=== PATIENT | male | born 1950 | race Caucasian/White ===

== ENCOUNTER 2018-06-07 15:07 | Outpatient (CLI) | payer OTHER ==
--- NOTE | 2018-06-07 15:59 | CT ---
EXAM: CT of the head without contrast History: Head trauma. Comparison: Head CT 10/05/2009 Technique: Multiplanar CT images through the head were obtained without the administration of IV con trast. Findings: The visualized paranasal sinuses and mastoid air cells are clear in general. No acute teresa varial abnormalities. Intracranially the ventricular and cisternal spaces are normal in size, shape and configuration for a patient of this age. No dominant mass or midline shift. No hydrocephalous. No acute intracranial hemorrhage or abnormal extraaxial fluid collections. Scattered periventricular and subcortical white matter hypodensities. Impression: 1. No acute intracranial process. 2. Chronic small vessel ischemic disease
--- NOTE | 2018-06-07 16:05 | CT ---
EXAM: CT of the cervical spine without contrast History: Neck pain and trauma. Technique: Multiplanar CT images through the cervical spine were obtained without the administration of IV contrast Findings: The visualized upper lungs are free of consolidation. The visualized airway remains patent . No acute fracture or subluxation of the cervical spine. No prevertebral soft tissue swelling. Gross ly intact anterior cervical fusion hardware from C3-C6. Predental space is not widened. Long bilate ral styloid processes. Bony spinal canal is not significantly compromised. Moderate multilevel bila teral bony neural foraminal narrowing secondary to uncovertebral and facet hypertrophy. Impression: No acute osseous abnormality of the cervical spine
--- NOTE | 2018-06-07 16:08 | CT ---
EXAM: CT of the maxillofacial region without contrast History: Right-sided facial trauma. Technique: Multiplanar CT images through the maxillofacial region were obtained without the administ ration of IV contrast. Findings: Orbits are intact. Visualized intracranial contents demonstrate no acute findings. There is mild subcutaneous edema of the right cheek. No acute fracture or dislocation. Nasal septum is u ndulating but bowed more to the right. Minimal mucosal thickening of the paranasal sinuses. Bilater al ostiomeatal units are not occluded. Long bilateral styloid processes. Impression: 1. No acute fracture. 2. Mild subcutaneous edema of the right cheek.
== END 2018-06-07 15:08 | disposition home or self-care (01) ==
LOC: RAD 15:07
PROVIDERS: ATTEND Family Medicine
DX: S09.90XA Unspecified injury of head, initial encounter (principal); R40.20 Unspecified coma; M54.2 Cervicalgia

== ENCOUNTER 2018-11-30 11:33 | Outpatient (CLI) ==
--- NOTE | 2018-11-30 12:26 | CT ---
EXAM: CT of the abdomen pelvis without contrast History: Right flank pain. Comparison: None available. Technique: Multiplanar CT images through the abdomen pelvis were obtained without the administration of IV contrast Findings: Subsegmental atelectasis seen within the lower lungs. No acute osseous abnormalities. No gallstones identified by CT. Subtle nodular surface contour of the liver. Spleen is unremarkable . No peripancreatic inflammation. 4 cm infrarenal abdominal aortic aneurysm. Adrenal glands are un remarkable. No renal stones and no hydronephrosis. No ureteral calculi. No bowel obstruction. The appendix is not seen. There are no secondary signs of appendicitis. Mild sigmoid diverticulosis. No free air and no ascites. No bladder wall thickening. Prostate is not enlarged. No perirectal in flammation. Partially visualized left scrotal hydrocele. Impression: 1. No acute intra-abdominal or pelvic process. 2. 4 cm infrarenal abdominal aortic aneurysm. 3. Possible cirrhosis. 4. Colonic diverticulosis. 5. Left scrotal hydrocele
== END 2018-11-30 11:34 | disposition home or self-care (01) ==
LOC: RAD 11:33
PROVIDERS: ATTEND Family Medicine
DX: R10.9 Unspecified abdominal pain (principal)
CPT/HCPCS: 74176